=== PATIENT | male | born 2000 | race Caucasian/White ===

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

== ENCOUNTER 2018-12-28 13:57 | Emergency (ER) | payer OTHER ==
[~2018-12-28] VITALS: Ht 177.8 cm; Wt 99.8 kg
[~2018-12-28 13:57] MED LIST changes: +ACET500C5 PO; +CEPH-443 PO; +GUAI120S25 PO; -GUAI120S26 PO; +IBUP-1561 PO; -IBUP400T22 PO
[2018-12-28 14:01] VITALS: BP 162/91; PULSE 77; RESP 20; Ht 177.8 cm; Wt 99.8 kg
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
[2018-12-28] MEDS ORDERED: BACL10TA PO (14:58)
[2018-12-28] MEDS ORDERED: IBUP-1561 PO (14:58)
[2018-12-28] MEDS ORDERED: ACET325T33 PO (14:58)
== END 2018-12-28 15:19 | disposition home or self-care (01) ==
LOC: FTE 13:57
DX: S40.012A Contusion of left shoulder, initial encounter (principal); V49.49XA Driver injured in collision with other motor vehicles in traffic accident, initial encounter
CPT/HCPCS: 99283